=== PATIENT | male | born 1985 | race Caucasian/White ===

== ENCOUNTER 2018-03-27 22:42 | Emergency (ER) | END 2018-03-28 06:53 | disposition home or self-care (01) ==

== ENCOUNTER 2018-10-04 06:15 | Emergency (ER) | payer MEDICAID ==
[~2018-10-04] VITALS: Ht 172.7 cm; Wt 98.7 kg
[~2018-10-04 06:15] MED LIST: CEPH-443 PO; NAPR-985 PO
[2018-10-04 06:36] VITALS: Ht 172.7 cm; Wt 98.7 kg
[2018-10-04] MEDS ORDERED: MAGNESIUM SULFATE 2 GM, MULTIVITAMINS 10 ML, THIAMINE 100 MG, FOLIC ACID 1 MG in SOD CH... IV STA (07:04)
[2018-10-04] MEDS ORDERED: THIAMINE 100 MG TAB PO ONE (07:30)
[2018-10-04] MEDS ORDERED: LORAZEPAM 2 MG INJ IV ONE (10:00)
[2018-10-04] MEDS ORDERED: LORA-441 PO (12:10)
--- NOTE | 2018-10-04 12:29 | ERD ---
ER Documentation Chief Complaint Chief Complaint C/O CAREY AND FREQUENT FALL X2 WEEKS HPI This is a 33-year-old male with a history of severe alcohol abuse. The patient indicates 2 months ago he stopped all alcohol as he had a family member that had severe complications from alcohol abuse. The patient indicates that since stopping alcohol he has had generalized weakness. He has been experiencing bandlike headaches. Patient states these headaches are not the worst headache of his lives. He does feel unsteady in his gait but states contrary to the triage note the patient has not had any falls. The patient has had a history of withdrawal seizures in the past but states he has not had any seizure activity since being abstinent from alcohol for 2 months. He denies any hemoptysis. No hematemesis. No melanotic stools. He states this is not the worst headache of his life. He said no fevers or shaking no chills no neck pain. No chest pain. No shortness of breath. ROS All systems reviewed and are negative except as per history of present illness. Medications Home Meds Active Scripts Lorazepam* (Ativan*) 0.5 Mg Tablet, 0.5 MG PO Q8H PRN for AGITATION/ANXIETY, #10 TAB Prov:INGRID DAVIS MD 10/04/18 Discontinued Scripts Naproxen* (Naprosyn*) 500 Mg Tablet, 500 MG PO BID PRN for PAIN AND/OR INFLAMMATION, #30 TAB Prov:HEMANT FRITZ PA-C 03/28/18 Cephalexin* (Keflex*) 500 Mg Capsule, 500 MG PO QID for 7 Days, CAP Prov:HEMANT FRITZ PA-C 03/28/18 Allergies Allergies: Coded Allergies: No Known Drug Allergies (Verified Allergy, Unknown, 10/04/18) PMhx/Soc History of Surgery: No Anesthesia Reaction: No Hx Neurological Disorder: No Hx Respiratory Disorders: No Hx Cardiac Disorders: No Hx Psychiatric Problems: No Hx Miscellaneous Medical Probl: Yes (alcoholism) Hx Alcohol Use: Yes (haven't drink alcohol x 2 months) Hx Substance Use: Yes (MJ) Hx Tobacco Use: Yes (2 DAYS AGO 1/2 PACK) Smoking Status: Former smoker Physical Exam Vitals Vital Signs Date Temp Pulse Resp B/P (MAP) Pulse Ox O2 O2 Flow FiO2 Time Delivery Rate 10/04/18 56 19 105/61 100 Room Air 10:00 (76) 10/04/18 57 20 125/77 100 Room Air 09:00 (93) 10/04/18 58 19 126/82 100 Room Air 08:00 (97) 10/04/18 98.4 67 19 124/79 97 06:36 (94) Physical Exam Constitutional:Well-developed. Well-nourished. HEENT:Normocephalic. Atraumatic.Pupils were equal round reactive to light. Moist mucous membranes. Funduscopy exam shows sharp optic disks and venous pulsations are present Neck: No nuchal rigidity. No lymphadenopathy. No posterior cervical spine tenderness or step-offs. Respiratory: Not using accessory muscles of respiration.Lungs were clear to auscultation bilaterally. No rhonchi. No rales. No wheezing. Cardiovascular: Regular rate regular rhythm.No murmurs. No rubs were appreciated.S1, S2 normal. Distal pulses are palpable 2+ bilaterally. GI: Abdomen was soft. Nontender. Non Distended. No pulsatile abdominal masses or bruits. No rebound. No guarding. Bowel sounds were present and normal. Muscle skeletal: Full range of motion of both the upper and lower extremities bilaterally.Normal muscle tone.No assymetrical calf tenderness or swelling. Skin: No petechia, no purpura. No lesions on the palms or the soles of the feet. No maculopapular rash. NEURO: Patient was alert, awake, orientated x3.No facial droop. Gait observed and normal with no ataxia.Speech had regular rate and rhythm. No focal neurological deficits. No asterixis. Result Diagram: 10/04/18 0711 10/04/18 0712 Results 24 hrs Laboratory Tests Test 10/04/18 07:11 10/04/18 07:12 White Blood Count 8.4 10^3/ul Red Blood Count 4.74 10^6/ul Hemoglobin 13.8 g/dl Hematocrit 41.8 % Mean Corpuscular Volume 88.2 fl Mean Corpuscular Hemoglobin 29.1 pg Mean Corpuscular Hemoglobin Concent 33.0 g/dl Red Cell Distribution Width 12.7 % Platelet Count 255 10^3/UL Mean Platelet Volume 10.0 fl Immature Granulocytes % 0.500 % Neutrophils % 71.8 % Lymphocytes % 17.6 % Monocytes % 7.4 % Eosinophils % 2.5 % Basophils % 0.2 % Nucleated Red Blood Cells % 0.0 /100WBC Immature Granulocytes # 0.040 10^3/ul Neutrophils # 6.0 10^3/ul Lymphocytes # 1.5 10^3/ul Monocytes # 0.6 10^3/ul Eosinophils # 0.2 10^3/ul Basophils # 0.0 10^3/ul Nucleated Red Blood Cells # 0.0 10^3/ul Prothrombin Time 12.5 Sec Prothrombin Time Ratio 1.0 INR International Normalized Ratio 0.92 Activated Partial Thromboplast Time 27.7 Sec Sodium Level 142 mmol/L Potassium Level 4.2 mmol/L Chloride Level 109 mmol/L Carbon Dioxide Level 25 mmol/L Anion Gap 8 Blood Urea Nitrogen 13 mg/dl Creatinine 0.65 mg/dl Est Glomerular Filtrat Rate mL/min > 60 mL/min Glucose Level 120 mg/dl Calcium Level 8.7 mg/dl Total Bilirubin 0.4 mg/dl Direct Bilirubin 0.00 mg/dl Indirect Bilirubin 0.4 mg/dl Aspartate Amino Transf (AST/SGOT) 23 IU/L Alanine Aminotransferase (ALT/SGPT) 31 IU/L Alkaline Phosphatase 67 IU/L Creatine Kinase 152 IU/L Creatine Kinase Index 0.5 Creatinine Kinase MB (Mass) 0.77 ng/ml Troponin I < 0.012 ng/ml Total Protein 7.4 g/dl Albumin 3.9 g/dl Globulin 3.50 g/dl Albumin/Globulin Ratio 1.11 Lipase 57 U/L Ethyl Alcohol Level < 10.0 mg/dl Current Medications Medications Dose Sig/Shiva Start Time Status Last (Trade) Ordered Route PRN Stop Time Admin Dose Reason Admin Magnesium 1,015.2 ml Q2H2M STAT 10/04/18 DC 10/04/18 Sulfate 2 @ 500 mls/ IV 07:04 07:47 gm/ hr 10/04/18 09:05 Multivitamins 10 ml/Thiamine HCl 100 mg/Folic Acid 1 mg/Sodium Chloride Thiamine 100 mg ONCE ONCE 10/04/18 DC 10/04/18 HCl PO 07:30 07:47 (Vitamin B1) 10/04/18 07:31 Lorazepam 0.5 mg ONCE ONCE 10/04/18 DC (Ativan) IV 10:00 10/04/18 10:01 Procedures/[facility] The patient presented to the emergency department with an acute single headache that presented within hours of onset my differential diagnosis included but was not limited to meningitis, SAH, intracerebral hemorrhage, hypertensive encephalopathy, cranial artery dissection, cerebral venous sinus thrombosis, traumatic, acute sinusitis. The patient has no ocular symptoms to suggest temporal neuritis, acute narrow-angle glaucoma or pituitary apoplexy. The patient did not appear to have a toxic or metabolic etiology such as fever, hypoglycemia, high-altitude disease or carbon monoxide poisoning. This was not the patients worse headache of their life. The patient had a complete neurologic and fundoscopic exam performed by myself that was normal with no focal neurological deficits or retinal hemorrhage. The patient stated this headache was not severe or distinct from other headaches and the history with the physical exam findings did not likely suggest SAH. Therefore, I did not feel it was clinically necessary to perform a lumbar puncture and CSF analysis. 12 Lead EKG tracing ordered and reviewed by myself showed: Sinus bradycardia 55 bpm and no arrhythmia. OK interval normal. QRS duration normal. No ST segment elevation No ST segment depression. No changes consistent with acute ischemia. I obtained a CT scan the patient's and there is no intracerebral hemorrhage mass-effect or midline shift. Observation Note: Time: 4 hours Family Hx: No Hypertension Evaluation: Multiple exams showed improving symptoms and no evidence of impending delirium tremors. The patient received a banana bag and Ativan. He was also given vitamin B1 and there is no evidence of Warnicke's encephalopathy. I felt the patient be safe to be discharged home. The patient was discharged home in fair condition. They were instructed to return to the emergency department at any time if there was any worsening of their condition. The patient stated they would follow up with their PCP in the next 24-48 hours to initiate a suitable medication regimen under the care of their PCP as well as to allow their PCP to monitor any drug reactions. The patient was discharged home with prescriptions after they gave informed consent to the new medication. They were also fully informed by myself on the adverse effects and adverse drug interactions in order to provide adequate safeguards to prevent possible adverse reactions to medications. Departure Diagnosis: Primary Impression: Tension headache Additional Impression: Alcohol withdrawal syndrome Complication of substance-induced condition: uncomplicated Qualified Codes: F10.230 - Alcohol dependence with withdrawal, uncomplicated Condition: Fair Patient Instructions: Alcohol Withdrawal: What to Expect, Headache, Tension INGRID DAVIS MD Oct 04, 2018 12:29
[2018-10-04 12:57] VITALS: BP 134/90; PULSE 58; RESP 20
== END 2018-10-04 12:15 | disposition home or self-care (01) ==
LOC: E/R 06:15
DX: G44.209 Tension-type headache, unspecified, not intractable (principal); F10.230 Alcohol dependence with withdrawal, uncomplicated; R53.1 Weakness; Z87.891 Personal history of nicotine dependence
CPT/HCPCS: 36415; 70450; 80053; 80307; 82550; 82553; 83690; 84484; 85025; 85610; 85730; 93005; 96374; J3411; J3475; J7030; Z7502; Z7610